=== PATIENT | female | born 1970 | race Caucasian/White ===

== ENCOUNTER → 2017-02-16 | Outpatient (CLI) | payer OTHER ==
[~2017-02-16] MED LIST: ASPIRIN81 M2 PO; ATORVASTATIN CA10 MG PO; BACLOFEN10 MG PO; CELEXA20 MG PO; CLOPIDOGREL75 MG PO; IBUPROFEN100 MG PO; METOPROLOL TAR25 MG PO; TRAMADOL HCL50 M2 PO
--- NOTE | ~2017-02-16 | US6 ---
[facility] A Service of [facility] RADIOLOGY TEXT RESULTS PATIENT: ERINN HUNG LOCATION: [facility] : 74 UNIT #: [id number] AGE: [address]: Noe Leung MD SEX: F ORDER DR: [id number] [facility] [address] [place], [place] [address] [id number] O MR#: [id number] Acc #: [id number] NAME: ERINN HUNG : 1970 SEX: F STUDY DATE/TIME: 02/16/2017 8:13 UNIT: [facility] ROOM: STUDY DESCRIPTION: US Abdominal Limited Attending Physician: Noe Leung M.D. Referring Physician: Noe Leung M.D. Ordering Physician: Noe Leung M.D. Primary Care Physician: Noe Leung M.D. MEDICAL IMAGING REPORT This report is preliminary unless electronic signature is present EXAM Right upper quadrant ultrasound, 02/16/2017 HISTORY Right upper quadrant abdominal pain with nausea and vomiting since 2012. Abdominal bloating and distension. FINDINGS The liver demonstrates an increase in echotexture with attenuation of the ultrasound beam characteristic of mild fatty infiltration. No cystic or solid mass lesions were seen in the liver. The intra and extrahepatic bile ducts are not dilated. The gallbladder is normal with no evidence of cholelithiasis, wall thickening or pericholecystic fluid. The common duct measures 2.0 mm. The pancreas and right kidney are normal. IMPRESSION Fatty infiltration of the liver. Otherwise negative right upper quadrant ultrasound. Dictated by... Chandrakant Lynch M.D. THIS IS AN ELECTRONICALLY VERIFIED REPORT Chandrakant Lynch M.D. at 02/16/2017 5:34 PM Jalen TD: 02/16/2017 11:54 JOB #: [id number] MEDICAL IMAGING REPORT Page 1 of 1 COPY
== END | disposition home or self-care (01) ==
LOC: CWCC 07:58
DX: R10.13 Epigastric pain (principal); R11.2 Nausea with vomiting, unspecified; K76.0 Fatty (change of) liver, not elsewhere classified
CPT/HCPCS: 76705